=== PATIENT | male | born 1960 | race Caucasian/White ===

== ENCOUNTER 2023-12-30 08:27 | Inpatient (IN) | payer MEDICARE, OTHER ==
[~2023-12-30] VITALS: Ht 157.5 cm; Wt 74.1 kg
[2023-12-30 09:00] VITALS: BP 146/81; TEMP 97.5; TEMP 98.6; O2SAT 98
[2023-12-30] MEDS ORDERED: VANCOMYCIN 1 GM in IV D5W 250ml IV ONE (12:00)
[2023-12-30] MEDS ORDERED: FENTANYL PF 250MCG/5ML AMPUL ONE (12:16)
[2023-12-30] MEDS ORDERED: dexaMETHasone SOD PHOSPHATE 1 ML ONE ×2 (12:18)
[2023-12-30] MEDS ORDERED: KETOROLAC TROMETHAMINE INJ 30 MG/ML VIAL ONE ×3 (12:19→15:48)
[2023-12-30] MEDS ORDERED: SUCCINYLCHOLINE CHLORIDE 20 MG/ML VIAL ONE (12:59)
[2023-12-30] MEDS ORDERED: LIDOCAINE 2%-EPI 1:100,000 30 ML VIAL ONE (13:14)
[2023-12-30] MEDS ORDERED: ANESTHESIA TRAY IN PYXIS 1 EA TRAY MC ONE (14:48)
[2023-12-30 16:00] VITALS: BP 142/80; TEMP 97.4; O2SAT 97
[2023-12-30 16:30] VITALS: BP 142/80; TEMP 97.9; O2SAT 97
[2023-12-30] MEDS ORDERED: ACETAMINOPHEN 325 MG TABLET PO PRN (17:00)
[2023-12-30] MEDS ORDERED: ONDANSETRON HCL/PF 4 MG/2 ML VIAL IVP PRN (17:00)
[2023-12-30] MEDS: HYDROMORPHONE 1 MG/1 ML DISP.SYRIN IV PRN (17:04)
[2023-12-30] MEDS: IV NS 0.9% 1,000 ML IV PRN (17:24)
[2023-12-30] MEDS ORDERED: ZOLP5TAB8 PO (17:40)
[2023-12-30] MEDS ORDERED: ESCI10TA PO (17:40)
[2023-12-30] MEDS ORDERED: ALBU18HF2 INH (17:40)
[2023-12-30] MEDS ORDERED: LORA10TA7 PO (17:40)
[2023-12-30] MEDS ORDERED: TERA2CAP4 PO (17:40)
[2023-12-30] MEDS ORDERED: OMEP20TA5 PO (17:40)
[2023-12-30] MEDS ORDERED: LISI10TA29 PO (17:40)
[2023-12-30 20:00] VITALS: BP 123/73; TEMP 98.6; O2SAT 97
[2023-12-30 20:43] VITALS: BP 123/73; TEMP 98.6; O2SAT 97
[2023-12-30] MEDS ORDERED: ALBUTEROL FS 2.5 MG/0.5 ML VIAL.NEB NEB PRN (21:00)
[2023-12-30] MEDS: VANCOMYCIN 1 GM in IV D5W 250ml IV SCH (23:04)
[2023-12-31] MEDS: ZOLPIDEM TARTRATE 5 MG TABLET PO PRN (00:12)
[2023-12-31 05:20] VITALS: O2SAT 98
[2023-12-31] MEDS: PANTOPRAZOLE 40 MG TABLET.DR PO SCH (08:22)
[2023-12-31] MEDS: ESCITALOPRAM OXALATE (10 MG) 10 MG TABLET PO SCH (08:29)
[2023-12-31] MEDS: LISINOPRIL (10MG) 10 MG TABLET PO SCH (08:29)
[2023-12-31] MEDS: LORATADINE 10 MG TABLET PO SCH (08:29)
[2023-12-31 08:30] VITALS: BP 115/66
[2023-12-31] MEDS: TERAZOSIN HCL 1 MG CAPSULE PO SCH (08:30)
== END 2023-12-31 13:45 | disposition home or self-care (01) | DRG 516 ==
LOC: DS 08:27 → MED 08:28 → EDSEX 10:25 → MED 10:59
PROC: 0NBR0ZX Excision of Maxilla, Open Approach, Diagnostic (ICD-10-PCS; principal; 2023-12-30)
PROC: 0NSR04Z Reposition Maxilla with Internal Fixation Device, Open Approach (ICD-10-PCS; 2023-12-30)
PROC: 0NBV0ZX Excision of Left Mandible, Open Approach, Diagnostic (ICD-10-PCS; 2023-12-30)
PROC: 0NUR0JZ Supplement Maxilla with Synthetic Substitute, Open Approach (ICD-10-PCS; 2023-12-30)
PROC: 0NUR07Z Supplement Maxilla with Autologous Tissue Substitute, Open Approach (ICD-10-PCS; 2023-12-30)
PROC: 0NSV04Z Reposition Left Mandible with Internal Fixation Device, Open Approach (ICD-10-PCS; 2023-12-30)
PROC: 0NST04Z Reposition Right Mandible with Internal Fixation Device, Open Approach (ICD-10-PCS; 2023-12-30)
PROC: 0NUV07Z Supplement Left Mandible with Autologous Tissue Substitute, Open Approach (ICD-10-PCS; 2023-12-30)
PROC: 0NUT07Z Supplement Right Mandible with Autologous Tissue Substitute, Open Approach (ICD-10-PCS; 2023-12-30)
PROC: 0NUV0JZ Supplement Left Mandible with Synthetic Substitute, Open Approach (ICD-10-PCS; 2023-12-30)
PROC: 0NUT0JZ Supplement Right Mandible with Synthetic Substitute, Open Approach (ICD-10-PCS; 2023-12-30)
PROC: 09BR0ZZ Excision of Left Maxillary Sinus, Open Approach (ICD-10-PCS; 2023-12-30)
PROC: 0NBT0ZX Excision of Right Mandible, Open Approach, Diagnostic (ICD-10-PCS; 2023-12-30)
DX: S02.40DK Maxillary fracture, left side, subsequent encounter for fracture with nonunion (principal); T81.83XA Persistent postprocedural fistula, initial encounter; X58.XXXD Exposure to other specified factors, subsequent encounter; M27.2 Inflammatory conditions of jaws; F32.A Depression, unspecified; I10 Essential (primary) hypertension; J45.909 Unspecified asthma, uncomplicated; K21.9 Gastro-esophageal reflux disease without esophagitis; N40.0 Benign prostatic hyperplasia without lower urinary tract symptoms; D16.4 Benign neoplasm of bones of skull and face; S02.69XK Fracture of mandible of other specified site, subsequent encounter for fracture with nonunion; J32.0 Chronic maxillary sinusitis; S02.40CK Maxillary fracture, right side, subsequent encounter for fracture with nonunion
CPT/HCPCS: 88305-TC; 88311-TC; 94760-TC; 94799-TC; A4223; C1713; G0378; J0330; J1100; J1170; J1885; J2405; J2704; J2765; J3010; J3370; J3490; J7060

== ENCOUNTER 2024-04-27 08:29 | Inpatient (IN) | payer MEDICARE, OTHER ==
[~2024-04-27] VITALS: Ht 167.6 cm; Wt 792.9 kg
[~2024-04-27 08:29] MED LIST: ALBU18HF2 INH; ESCI10TA PO; LISI10TA29 PO; LORA10TA7 PO; OMEP20TA5 PO; TERA2CAP4 PO; ZOLP5TAB8 PO
[2024-04-27] MEDS ORDERED: PANTOPRAZOLE 40 MG TABLET.DR PO PRN ×2 (09:00→18:18)
[2024-04-27] MEDS ORDERED: VANCOMYCIN 1 GM VIAL ONE (11:15)
[2024-04-27] MEDS ORDERED: dexaMETHasone SOD PHOSPHATE 2 ML ONE (11:15)
[2024-04-27] MEDS ORDERED: LIDOCAINE 2%-EPI 1:100,000 30 ML VIAL ONE (11:15)
[2024-04-27] MEDS ORDERED: hydrALAZINE HCL IV 20 MG VIAL ONE (13:04)
[2024-04-27] MEDS ORDERED: IV NS 0.9% 1,000 ML IV PRN (13:30)
[2024-04-27] MEDS ORDERED: ONDANSETRON HCL/PF 4 MG/2 ML VIAL IV PRN (13:30)
[2024-04-27] MEDS ORDERED: HYDROMORPHONE 1 MG/1 ML DISP.SYRIN IV PRN (13:30)
[2024-04-27] MEDS: ACETAMINOPHEN 325 MG TABLET PO PRN (14:54)
[2024-04-27] MEDS ORDERED: CHOL100062 PO (14:55)
[2024-04-27] MEDS ORDERED: LISINOPRIL (10MG) 10 MG TABLET PO SCH (18:00)
[2024-04-27] MEDS ORDERED: ALBUTEROL FS 2.5 MG/0.5 ML VIAL.NEB IH PRN (19:30)
[2024-04-27 19:54] VITALS: BP 106/56; TEMP 98.6; O2SAT 96
[2024-04-27] MEDS ORDERED: ZOLPIDEM TARTRATE 5 MG TABLET PO PRN (22:00)
[2024-04-28 08:00] VITALS: BP 99/58; TEMP 98; O2SAT 99
[2024-04-28 09:08] VITALS: BP 99/58; TEMP 98; O2SAT 95
[2024-04-28] MEDS: LORATADINE 10 MG TABLET PO SCH (10:18)
[2024-04-28 10:19] VITALS: BP 103/60
[2024-04-28] MEDS: TERAZOSIN HCL 1 MG CAPSULE PO SCH (10:19)
== END 2024-04-28 11:28 | disposition home or self-care (01) | DRG 496 ==
LOC: DS 08:29 → MED 14:06
PROVIDERS: ADMIT Internal Medicine; ATTEND Internal Medicine
PROC: 0NBT0ZZ Excision of Right Mandible, Open Approach (ICD-10-PCS; principal; 2024-04-27)
PROC: 0N5R0ZZ Destruction of Maxilla, Open Approach (ICD-10-PCS; principal; 2024-04-27)
PROC: 0NPW04Z Removal of Internal Fixation Device from Facial Bone, Open Approach (ICD-10-PCS; principal; 2024-04-27)
PROC: 0WB30ZZ Excision of Oral Cavity and Throat, Open Approach (ICD-10-PCS; principal; 2024-04-27)
PROC: 0N5V0ZZ Destruction of Left Mandible, Open Approach (ICD-10-PCS; principal; 2024-04-27)
DX: T84.69XA Infection and inflammatory reaction due to internal fixation device of other site, initial encounter (principal); T81.83XA Persistent postprocedural fistula, initial encounter; M27.2 Inflammatory conditions of jaws; I10 Essential (primary) hypertension; J45.909 Unspecified asthma, uncomplicated; K21.9 Gastro-esophageal reflux disease without esophagitis; N40.0 Benign prostatic hyperplasia without lower urinary tract symptoms; Z88.8 Allergy status to other drugs, medicaments and biological substances; Y83.8 Other surgical procedures as the cause of abnormal reaction of the patient, or of later complication, without mention of misadventure at the time of the procedure; Y92.89 Other specified places as the place of occurrence of the external cause; K13.70 Unspecified lesions of oral mucosa; M89.38 Hypertrophy of bone, other site
CPT/HCPCS: 88300-TC; 88305-TC; 88311-TC; A4223; A4338; G0378; J0360; J0690; J1100; J1171; J2405; J2704; J3370; J3490; J7030